=== PATIENT | female | born 1955 | race Caucasian/White ===

== ENCOUNTER 2019-02-24 07:30 | Emergency (ER) | payer OTHER ==
[~2019-02-24] VITALS: Ht 165.1 cm
[~2019-02-24 07:30] MED LIST: ADULT LOW DOSE81 MG PO; ALPRAZOLAM; AMBIEN; AMBIEN OR; BACTRIM DS TAB1 EACH PO; BENTYL; BONIVA; CALCIUM; CELEBREX 200 M200 M1 PO; CHERATUSSIN DA480 ML; CLONAZEPAM; DEPAKOTE500 MG; DESYREL50 MG; DETROL2 M1; FORTEO750 MCG/3 SUBQ; FOSAMAX 70 MG T70 MG; GEODON60 MG; IBUPROFEN 800800 MG PO; KLOR-CON 10 ER10 MEQ; LASIX 20 MG TAB20 MG; LMX 530 GM; MELATONIN5 M1; NEURONTIN 300300 M1; NEXIUM40 MG PO; NIACIN 500 MG500 M1 PO; NORCO 5-325 TA1 EACH PO; PROAIR HFA8.5 GM; PROZAC40 MG PO; PYRIDIUM200 MG PO; QUETIAPINE FUM400 MG; TRICOR145 MG PO; VICODIN; VIIBRYD40 MG PO; VITAMIN C 250250 MG; VITAMIN D1000 UNI1 PO; ZESTORETIC 10-1 EACH; ZOCOR80 MG
[2019-02-24 07:45] VITALS: BP 151/97
[2019-02-24 08:19] LABS: POC CA IONIZED 4.3 mg/dL (4.5-5.3); POC CREATININE 1.9 mg/dL (0.6-1.3); POC POTASSIUM 4.4 mmol/L (3.5-4.9)
--- NOTE | 2019-02-24 08:19 | NUR ---
SEE STROKE DOCUMENTATION, VS ON STROKE DOCUMENTATION. NOT TO RECEIVE TPA
[2019-02-24 08:29] LABS: ABSOLUTE BASOPHILS 0.1 thou/uL (0.0-0.2); ABSOLUTE LYMPHOCYTES 1.7 thou/uL (0.8-5.3); ABSOLUTE MONOCYTES 1.7 thou/uL (0.0-1.2); ABSOLUTE NEUTROPHILS 9.8 thou/uL (1.6-8.1); BASOPHILS 0.5 %; HEMATOCRIT 38.6 % (37.0-47.0); HEMOGLOBIN 12.6 gm/dL (12.0-15.0); LYMPHOCYTES 12.6 %; MCH 29.5 pg (26.0-34.0); MCHC 32.5 g/dL (28.0-37.0); MCV 90.8 fL (80.0-100.0); MONOCYTES 12.7 %; MPV 8.8 fl. (7.2-11.1); NUCLEATED RBCS 0 /100WBC; PLATELET COUNT* 301 thou/uL (150-400); POLYS 74.2 %; RBC 4.25 mil/uL (4.20-5.00); RDW-CV 13.9 % (10.5-14.5); WBC 13.2 thou/uL (4.0-11.0)
[2019-02-24 08:39] LABS: CALCIUM 8.6 mg/dL (8.5-10.1); POTASSIUM 4.2 mmol/L (3.5-5.1)
[2019-02-24 08:50] LABS: ALBUMIN 3.5 g/dL (3.4-5.0); TOTAL BILIRUBIN 0.3 mg/dL (<0.1-1.0); TOTAL PROTEIN 7.3 g/dL (6.4-8.2)
[2019-02-24 08:52] LABS: APTT 25.5 Seconds (25.0-31.3); PROTIME 10.7 Seconds (9.20-11.50)
[2019-02-24 11:34] LABS: URINE BILIRUBIN NEGATIVE (Negative); URINE BLOOD 3+ (Negative); URINE CLARITY CLEAR; URINE COLOR YELLOW; URINE GLUCOSE-RANDOM NEGATIVE (Negative); URINE KETONES NEGATIVE (Negative); URINE LEUKOCYTES NEGATIVE (Negative); URINE NITRITE POSITIVE (Negative); URINE PROTEIN 2+ (Negative); URINE UROBILINOGEN 0.2 E.U./dl (0.2-1.0)
[2019-02-24 11:41] LABS: SQUAMOUS NONE SEEN /LPF (0-3)
[2019-02-24 11:42] LABS: URINE RBC 3-10 Few /HPF (0-2); URINE WBC 0-5 Rare /HPF (0-5)
[2019-02-24 11:43] LABS: CASTS None Seen /LPF (None Seen); CRYSTALS None Seen /LPF (None Seen); MUCUS None Seen strn/LPF (None Seen)
[2019-02-24 13:48] VITALS: BP 151/97
--- NOTE | 2019-02-25 12:40 | EKG ---
[place] [address] ELECTROCARDIOGRAM REPORT Name: ABNERNICKY TY [id number] Admission: 02/24/19 Attend Phys: Discharge: 02/24/19 Date of : 57 Report #: [id number] THIS REPORT FOR: //name// [facility] ED Test Date: 2019-02-24 Test Time: 08:13:07 Pat Name: NICKY LEVINE Department: Room: [facility] Gender: Outside Medical Sales Representative: Lis APODACA : 1955 Requested By: Jorge Avelar Order Number: [id number] MD: Ahmet Marcelo Measurements Intervals Smith Rate: 125 P: 76 GA: 147 QRS: -37 QRSD: 92 T: 73 QT: 316 QTc: 456 Interpretive Statements Sinus tachycardia Inferior infarct, old No previous ECG available for comparison Electronically Signed On 02-25-2019 12:40:44 CDT by Ahmet Marcelo [email or web address] <ELECTRONICALLY SIGNED> By: Ahmet Marcelo MD, [facility] 02/25/19 1240 812 2 Ahmet Marcelo MD, FACC /EPI
== END 2019-02-24 13:49 | disposition short-term general hospital (02) ==
LOC: M.ERS 07:30 → M.TBA-ER 08:57 → M.ERS 09:19 → M.TBA-ER 09:19 → M.ERS 13:49
PROVIDERS: Emergency Medicine Emergency Medical Services
DX: I63.9 Cerebral infarction, unspecified (principal); E78.00 Pure hypercholesterolemia, unspecified; F31.9 Bipolar disorder, unspecified; Z90.49 Acquired absence of other specified parts of digestive tract; Z90.710 Acquired absence of both cervix and uterus; Z98.890 Other specified postprocedural states

== ENCOUNTER → 2019-11-04 | Outpatient (CLI) | payer OTHER | LOC: M.ULTRA 13:57 | DX: M79.604 Pain in right leg (principal) ==